=== PATIENT | male | born 1965 | race Caucasian/White ===

== ENCOUNTER 2025-03-12 15:32 | Emergency (ER) | payer BC, SELFPAY ==
[2025-03-12 15:41] VITALS: BP 190/110; PULSE 86; RESP 16; TEMP 36.7; O2SAT 96; BMI 26.6
--- NOTE | 2025-03-12 16:15 | ED.GENADULT ---
HPI - General Adult General Date Seen: 03/12/25 Chief complaint: Extremity Pain/Injury, Lower Stated complaint: L foot injury Time Seen by Provider: 03/12/25 15:55 History of Present Illness HPI narrative: Patient is a 60-year-old male who denies past medical history. 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 He says he fell out of a tree last August, he estimates about 10 ft. He landed on his left foot and says he had pain in the medial foot and ankle as well as the lateral ankle after that fall. He says it has just never really gotten better. He does walk on it but he gets pain particularly in the medial ankle. Sometimes it will swell up. He says he used to run but he has not tried running because he knows that it will hurt. Sometimes he feels like the area gets kind of discolored in a reddish purplish way. He has not had any repeat injury. It hurts all the time but hurts more with weight-bearing. Related Data Home Medications ?Medication ?Instructions ?Recorded ?Confirmed No Known Home Medications 03/12/25 03/12/25 Allergies Allergy/AdvReac Type Severity Reaction Status Date / Time No Known Drug Allergies Allergy Verified 03/12/25 15:44 Exam Narrative: Exam Narrative: Vital signs reviewed, hypertensive In general, alert, nontoxic male. Extremities: Examination of the left foot and ankle shows no real obvious abnormality. No edema, bruising, focal tenderness. Distal CMS is intact. Const: Vital Signs, click to edit/add: Vital Signs - 24 hr 03/12/25 15:41 Temperature 98.0 F Pulse Rate [Pulse Oximeter] 86 Respiratory Rate 16 Blood Pressure [Ri ght Upper Arm] 190/110 H Pulse Oximetry 96 Oxygen Delivery Me thod Room Air Course Course ED Course: Reviewed with him that we do plain film here and make sure that there are no obvious fractures with nonunion. Other diagnostic considerations would be a stress fracture, soft tissue injury, potentially something unrelated to this fall such as plantar fasciitis, reviewed that in that case, would need him to follow-up with orthopedics when he gets back to [place]. In asking him why he decided to get this checked out today, he says he just decided since it had gotten better in all this time he would come in and have it looked at. It does not sound like anything changed or worsened. He has been functioning quite well all of these months. We did talk about the fact that his blood pressure is elevated. Reviewed the importance of getting his blood pressure under control and the risks associated with high blood pressure. I have asked him to follow up with somebody in primary care when he gets back to [place]. X-ray by my review is negative, radiology read is likewise negative aside from mild degenerative changes. I have reviewed this with him, recommend orthopedic and primary care follow-up when he gets back to [place] as discussed. Reviewed that x-rays are not perfect he certainly subtle things can be missed. Images were given to him on a disc. Vital Signs Vital signs: Initial Vital Signs Temperature 98.0 F 03/12/25 15:41 Temperature Source Temporal Artery Scan 03/12/25 15:41 Pulse Rate 86 03/12/25 15:41 Pulse Rhythm Regular 03/12/25 15:41 Respiratory Rate 16 03/12/25 15:41 Blood Pressure 190/110 H 03/12/25 15:41 Blood Pressure Mean 136 H 03/12/25 15:41 Blood Pressure Position Sitting 03/12/25 15:41 Pulse Oximetry 96 03/12/25 15:41 Oxygen Delivery Method Room Air 03/12/25 15:41 Vital Signs Temperature 98.0 F 03/12/25 15:41 Pulse Rate 86 03/12/25 15:41 Respiratory Rate 16 03/12/25 15:41 Blood Pressure 190/110 H 03/12/25 15:41 Pulse Oximetry 96 03/12/25 15:41 Oxygen Delivery Method Room Air 03/12/25 15:41 Temperature 98.0 F 03/12/25 15:41 Pulse Rate 86 03/12/25 15:41 Respiratory Rate 16 03/12/25 15:41 Blood Pressure 190/110 H 03/12/25 15:41 Pulse Oximetry 96 03/12/25 15:41 Oxygen Delivery Method Room Air 03/12/25 15:41 Medical Decision Making Imaging Data X-ray ankle: Attestation: I have reviewed the pertinent imaging results. Radiologist's impression: Patient: Kalen Najera MR#: [id number] : 1965 Acct:[id number] Loc: ED Service Date: 03/12/[address]: Ordering Physician: Sailaja Castillo M.D. Date of Service: 03/12/25 Procedure(s): XR ankle LT min 3V Accession Number(s): [id number] cc: Sailaja Castillo M.D.~ For Patients: As a result of the Cures Act, medical imaging exams and procedure reports are released immediately into your electronic medical record. You may view this report before your referring provider. If you have questions, please contact your health care provider. Indication: INJURY 7 MO AGO STILL HURTS Technique: Three views of the left ankle Comparison: None Findings/Impression: No acute fracture or malalignment. 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 No suspicious osseous lesions. The soft tissues are unremarkable. Dictated by José Hartley MD @ 03/12/2025 4:36:51 PM Discharge Plan Discharge Clinical Impression: Ankle pain, left, Elevated blood pressure reading Patient Disposition: Home, Self-Care Condition: Stable Instructions: Arthralgia (ED) Additional Instructions: Your x-rays today do not show any obvious fractures. Plain x-rays are not perfect and it is possible there could be a subtle injury we are not seeing, however given how long it has been since your injury I doubt there is a significant fracture. I would recommend that you follow-up with orthopedics when you get back to [place]. Likewise, I would recommend that you establish with a primary care doctor when you get back home, your blood pressure is significantly elevated here and the suggest you probably have baseline hypertension that should be managed with medication. As discussed, long-term high blood pressure can cause serious health problems such as kidney failure, heart disease and stroke if not properly managed. Prescriptions: No Action No Known Home Medications Stand Alone Forms: [employer] Info Instructions
--- OUTSIDE RECORDS SUMMARY | 2025-03-12 17:10 | XMS_ITS | Clinical Summary ---
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 Name Role Phone No, Pcp MD Primary Care Provider Unavailabl e Allergies No known active allergies Medications No known medications Active Problems No known active problems Social History Tobacco Use Types Packs/Day Years Used Date Smoking Tobacco: Never Smokeless Tobacco: Never Tobacco Cessation:Counseling Given: Not Answered Sex and Gender Information Value Date Recorded Sex Assigned at Not on file Legal Sex Male 2:30 AM EDT Gender Identity Not on file Sexual Orientation Not on file Last Filed Vital Signs Vital Sign Reading Time Taken Comments Blood Pressure 142/72 10/01/2023 3:00 PM EST Pulse 62 10/01/2023 3:00 PM EST Temperature 36.4 C (97.6 F) 10/01/2023 3:00 PM EST Respiratory Rate 17 10/01/2023 3:00 PM EST Oxygen Saturation 96% 10/01/2023 3:00 PM EST Inhaled Oxygen Concentration - - Weight 72.7 kg (160 lb 3.2 oz) 10/01/2023 3:00 P M EST Height 170.2 cm (5' 7) 10/01/2023 3:00 PM EST Body Mass Index 25.09 10/01/2023 3:00 PM EST Plan of Treatment Health Maintenance Due Date Last Done Comments CT Colonography 1965 Colonoscopy 1965 Colorectal Screening 1965 FIT-DNA 1965 FIT 1965 FOBT 1965 HIV SCREENING 1965 HIV Screening Every 1 Year 1965 HIV Screening Once 1965 Hepatitis C Screening 1965 Sigmoidoscopy 1965 COVID-19 Vaccine (1 of 4) 1976 DTAP/TDAP/TD (1 - Tdap) 1983 Shingrix (1 of 2) 2014 Influenza vaccine (Season Ended) 2025 HEPATITIS B VACCINES Aged Out No long er eligible based on patient's age to complete this topic Meningococcal B Aged Out No longer el igible based on patient's age to complete this topic Pneumococcal Vaccine: 0 to 64 Years Aged Out No longer eligible based on patient's age to complete this topic Insurance [facility] /[employer] OPEN ACCESS Care Teams Instrumental Music Teacher Relationship Specialty Start Date End Date No, MD Guillaume PCP - General 10/01/23
== END 2025-03-12 17:08 | disposition home or self-care (01) ==
PROVIDERS: Emergency Provider Emergency Medicine
DX: M25.572 Pain in left ankle and joints of left foot (principal); R03.0 Elevated blood-pressure reading, without diagnosis of hypertension
CPT/HCPCS: 73610; 99283